=== PATIENT | male | born 2000 | race Two or more races ===

== ENCOUNTER 2018-02-04 07:11 | Emergency (ER) | payer SELFPAY ==
[~2018-02-04] VITALS: Ht 172.7 cm; Wt 99.8 kg
[2018-02-04 07:23] VITALS: BP 134/72
[2018-02-04] MEDS ORDERED: methylPREDNISolone SOD SUCC 125 MG/2 ML VL IM ONE (07:45)
[2018-02-04] MEDS ORDERED: KETOROLAC TROMETH 60MG/2ML VIAL IM ONE (07:45)
== END 2018-02-04 08:14 | disposition home or self-care (01) ==
LOC: ER 07:11
DX: R20.2 Paresthesia of skin (principal)
CPT/HCPCS: 96372; 99283; J1885; J2930